=== PATIENT | male | born 1950 | race Caucasian/White ===

== ENCOUNTER 2017-05-22 13:20 | Day surgery (SDC) | payer MEDICARE, OTHER ==
[~2017-05-22] VITALS: Ht 188 cm; Wt 95.0 kg
[~2017-05-22 13:20] MED LIST: AMBIEN 10MG10 MG PO; ASPIRIN 81M81 MG/TA2 PO; ASPIRIN E.C. 8181 MG PO; BENICAR HCT 12.1 TA1 PO; BENICAR HCT 12.1 TAB PO; BRILINTA90 MG PO; COUMADIN 1MG1 MG/TAB PO; COUMADIN 3MG3 MG/TAB PO; COZAAR100 MG PO; HCTZ12.5TAB PO; K-DUR 10 MEQ T10 MEQ PO; LEXAPRO 10MG10 MG PO; LIPITOR 80MG80 MG PO; LOPRESSOR 225 MG/TAB PO; LOVENOX 4040 MG/0.4 SQ; MOTRIN 400400 MG/TAB PO; NORCO 325 MG-51 TAB PO; NORVASC 10MG10 MG PO; PLAVIX 75MG TAB75 MG PO; PRILOSEC 20MG20 MG PO; PROTONIX 40MG T40 MG PO; RAPAFLO8 MG PO; SUDAFED30 MG PO; TOPROL XL100 MG PO; VITAMIN D31000 IU PO; XANAX 0.5MG0.5 MG PO; ZOFRAN 4MG T4 MG/TAB PO
[2017-05-22] MEDS ORDERED: ELIQUIS 5MG PO (13:34)
[2017-05-22] MEDS ORDERED: LIVALO2 MG PO (13:35)
[2017-05-22] MEDS ORDERED: MULTAQ400 MG PO (13:37)
[2017-05-22 13:55] VITALS: BP 131/66; PULSE 89; TEMP 98.1
[2017-05-22 14:04] LABS: MEAN CELL VOLUME 86 fl (80.0-100.0); MEAN CORPUSCULAR HEMOGLOBIN 30 pg (27.0-31.0); MEAN CORPUSCULAR HGB CONC 35 g/dl (33.0-37.0); PLATELET COUNT 216 K/mm3 (130-400); RED BLOOD COUNT 5.01 M/mm3 (4.20-5.60)
== END 2017-05-22 15:15 | disposition home or self-care (01) ==
LOC: COL.CAR 13:20
PROVIDERS: Internal Medicine Interventional Cardiology
DX: I48.91 Unspecified atrial fibrillation (principal); R00.2 Palpitations; I48.0 Paroxysmal atrial fibrillation; Z86.718 Personal history of other venous thrombosis and embolism; I25.10 Atherosclerotic heart disease of native coronary artery without angina pectoris; I10 Essential (primary) hypertension; G47.33 Obstructive sleep apnea (adult) (pediatric); E78.5 Hyperlipidemia, unspecified; Z95.5 Presence of coronary angioplasty implant and graft
CPT/HCPCS: C1764

== ENCOUNTER 2018-09-15 10:35 | Day surgery (SDC) | payer MEDICARE, OTHER ==
[~2018-09-15] VITALS: Ht 185.4 cm; Wt 124.1 kg
[~2018-09-15 10:35] MED LIST changes: +ELIQUIS 5MG PO; +LIVALO4 MG PO; +MULTAQ400 MG PO
[2018-09-15 12:01] VITALS: BP 174/66; PULSE 56; TEMP 98.1
[2018-09-15] MEDS ORDERED: CARDIZEM120 MG PO (12:06)
[2018-09-15] MEDS ORDERED: TIAZAC240 MG PO (12:06)
[2018-09-15] MEDS ORDERED: MOBIC15 MG PO (12:08)
[2018-09-15] MEDS ORDERED: MULTI VITAMINS1 TAB PO (12:09)
[2018-09-15 14:03] VITALS: BP 130/62; PULSE 50; TEMP 98.1
[2018-09-15 14:18] VITALS: BP 125/59; PULSE 50
[2018-09-15 14:33] VITALS: BP 132/63; PULSE 50
[2018-09-15 14:48] VITALS: BP 134/60; PULSE 50
[2018-09-15 15:18] VITALS: BP 131/63; PULSE 50
== END 2018-09-15 15:20 | disposition home or self-care (01) ==
LOC: SDCO 10:35
DX: K40.90 Unilateral inguinal hernia, without obstruction or gangrene, not specified as recurrent (principal); I48.2 Chronic atrial fibrillation; Z79.01 Long term (current) use of anticoagulants; I10 Essential (primary) hypertension; Z85.46 Personal history of malignant neoplasm of prostate; Z79.82 Long term (current) use of aspirin; Z79.899 Other long term (current) drug therapy; G47.33 Obstructive sleep apnea (adult) (pediatric); K21.9 Gastro-esophageal reflux disease without esophagitis; G89.29 Other chronic pain; M54.9 Dorsalgia, unspecified; Z95.5 Presence of coronary angioplasty implant and graft
CPT/HCPCS: C1781; J2250; J2405; J2704; J3010; J7120

== ENCOUNTER 2019-09-02 10:08 | Day surgery (SDC) | payer MEDICARE, OTHER ==
[2019-09-02] VITALS (9 sets, daily range): BP systolic 104–123; BP diastolic 67–86; PULSE 65–88; TEMP 98.4
[~2019-09-02] VITALS: Ht 185.4 cm; Wt 120.0 kg
[~2019-09-02 10:08] MED LIST changes: +CARDIZEM120 MG PO; +MOBIC15 MG PO; +MULTI VITAMINS1 TAB PO
[2019-09-02 10:39] LABS: HEMATOCRIT 43.9 % (42.0-52.0); HEMOGLOBIN 15.2 g/dl (13.5-18.0); MEAN CELL VOLUME 89 fl (80.0-100.0); MEAN CORPUSCULAR HEMOGLOBIN 31 pg (27.0-31.0); MEAN CORPUSCULAR HGB CONC 35 g/dl (33.0-37.0); MEAN PLATELET VOLUME 9.7 fl (7.4-10.4); PLATELET COUNT 242 K/mm3 (130-400); RED BLOOD COUNT 4.92 M/mm3 (4.20-5.60); REDCELL DISTRIBUTION WIDTH-CV 12.9 % (11.5-14.5)
[2019-09-02] MEDS ORDERED: EDARB4012.5TAB PO (10:43)
[2019-09-02 10:47] LABS: CALCIUM 9.3 mg/dL (8.4-10.2); CREATININE, serum 1.03 (0.66-1.25); POTASSIUM 3.6 mmol/L (3.4-5.0)
[2019-09-02 11:00] LABS: PROTHROMBIN TIME 11.4 SECONDS (9.7-12.8)
[2019-09-02 11:03] LABS: PARTIAL THROMBOPLASTIN TIME 27.2 SECONDS (26.0-37.0)
--- NOTE | 2019-09-02 12:27 | NUR ---
SEE [facility]EREGLORIA FOR ALL MEDICATION ADMINISTRATION TIMES AND INTRA/POST SEDATION ASSESSMENTS
--- NOTE | 2019-09-02 13:15 | NUR ---
PT back from [employer], at bs, bedside report received from Britta PACHECO. Pt is awake and alert, TR band to rt wrist with 13 ml air instilled. cms intact to rt hand. no hematoma noted proximal or distal. no bleeding. splint in place. pt aware of poc.
--- NOTE | 2019-09-02 14:45 | NUR ---
Pt doing well post procedure, he has been able to eat dinner, and has been up to bathroom in the room, has gotten partially dressed. cms remains intact to rt upper extremity, site looks good without evidence of hematoma or bleeding, cms intact. pt reports feels very steady on feet.
--- NOTE | 2019-09-02 16:30 | NUR ---
TR band removed, hemostasis maintained, bandaid applied, splint reapplied. I have reviewed dc/fu instructions with patient and who deny any questions. They were given written dc instructions regarding moderate sedation and heart cath discharge instructions regarding site care and activity restrictions, aswell as reasons to be evaluated by md or in ER. IV was dc'd with cath intact, dressing was applied. to exit via wheelchair.
== END 2019-09-02 16:50 | disposition home or self-care (01) ==
LOC: COL.CAR 10:08
PROVIDERS: Internal Medicine Interventional Cardiology
DX: I25.10 Atherosclerotic heart disease of native coronary artery without angina pectoris (principal); I47.2 Ventricular tachycardia; I48.0 Paroxysmal atrial fibrillation; G47.33 Obstructive sleep apnea (adult) (pediatric); Z79.82 Long term (current) use of aspirin; Z79.01 Long term (current) use of anticoagulants; Z86.718 Personal history of other venous thrombosis and embolism; Z95.818 Presence of other cardiac implants and grafts; Z83.3 Family history of diabetes mellitus; Z82.3 Family history of stroke; Z82.49 Family history of ischemic heart disease and other diseases of the circulatory system
CPT/HCPCS: J1644; J2250; J3010; Q9967

== ENCOUNTER → 2021-09-11 | Outpatient (CLI) | payer MEDICARE, OTHER ==
[~2021-09-11] MED LIST changes: +EDARB4012.5TAB PO
== END ==
LOC: COL.VAS 08-26 08:00
DX: Z01.818 Encounter for other preprocedural examination (principal); Z86.718 Personal history of other venous thrombosis and embolism

== ENCOUNTER → 2021-11-25 | Outpatient (CLI) | payer MEDICARE, OTHER | LOC: MC.RAD 08:00 | DX: N63.20 Unspecified lump in the left breast, unspecified quadrant (principal) ==

== ENCOUNTER 2024-06-14 06:53 | Day surgery (SDC) | payer MEDICARE, OTHER ==
[2024-06-14] VITALS (9 sets, daily range): BP systolic 127–171; BP diastolic 66–88; PULSE 64–85; TEMP 96.8–98.2
[~2024-06-14] VITALS: Ht 188 cm; Wt 123.4 kg
[2024-06-14] MEDS ORDERED: LR 1,000 ML IV ONE (08:45)
[2024-06-14] MEDS ORDERED: NORVASC 5MG5 MG/TAB PO (09:25)
[2024-06-14] MEDS ORDERED: HCTZ 25MG TAB25 MG PO (09:26)
[2024-06-14] MEDS ORDERED: COZAAR 50MG50 MG/TAB PO (09:26)
[2024-06-14] MEDS ORDERED: TOPROL XL 50MG50 MG PO (09:27)
[2024-06-14] MEDS ORDERED: MELATONIN5 M1 SL (09:28)
[2024-06-14] MEDS ORDERED: Lidocaine PF 2% (20 MG/ML) 5 ML VIAL ONE (09:55)
[2024-06-14] MEDS ORDERED: Ondansetron 4 MG/2 ML VIAL ONE (09:55)
[2024-06-14] MEDS ORDERED: Glycopyrrolate 0.2 MG/ML 1 ML VIAL ONE (10:35)
[2024-06-14] MEDS ORDERED: ePHEDrine 50 MG/ML VIAL ONE (10:38)
[2024-06-14] MEDS ORDERED: Lidocaine 1% w EPI (1:100,000) 30 ML Multi-Dose VIAL IJ ONE (10:50)
[2024-06-14] MEDS ORDERED: Morphine 4 MG/ML VIAL IV PRN (13:15)
[2024-06-14] MEDS ORDERED: Ondansetron 4 MG/2 ML VIAL IV PRN ×2 (13:15→13:45)
[2024-06-14] MEDS ORDERED: Acetaminophen 325 MG TAB PO PRN (13:15)
[2024-06-14] MEDS ORDERED: hydrALAZINE 20 MG/ML 1 ML VIAL IV PRN (13:45)
[2024-06-14] MEDS ORDERED: HYDROmorphone 1 MG/1 ML SYRINGE [PACU/SDC ONLY] IV PRN (13:45)
[2024-06-14] MEDS ORDERED: fentaNYL 50 MCG/ML 1 ML SYRINGE/VIAL [PACU/SDC ONLY] IV PRN (13:45)
--- NOTE | 2024-06-14 17:00 | NUR ---
1400- PT RETURNS FROM PACU VIA CART TO [facility]. MONITORS ON AND ALARMS SET. CALL LIGHT WITHIN REACH. REPORT RECEIVED FROM JUNIOR GARCIA. PT ALERT AND ORIENTED. PT REQUESTS FOOD AND DRINK. PT DENIES ANY PAIN OR NAUSEA. 1415- PT TAKING FOOD AND DRINK WELL. PT DID STATE "I AM FEELING A LITTLE BIT OFF". PT HAS A HX OF A-FIB. IS CURRENTLY IN A-FIB AT THIS TIME. NOTIFIED JUNIOR MEREDITH AT THIS TIME. 1430- 5 LEAD EKG WAS PLACED ON PT. EKG SHOWS A-FIB. NOTHING ELSE CONCERNING. ANESTHESIA ALSO NOTIFIED AT THIS TIME. 1445- PT RESTING IN BED, VSS, EKG STILL SHOWING A-FIB. PT SAYS THAT HE IS STILL "FEELING WEIRD". KEEPING PT LONGER FOR OBSERVATION. 1500- WAITING ON TO COME BACK [place] [employer] [place]. 1530- PT SAYS THAT HE IS STARTING TO FEEL BETTER AND STATES "I FEEL LIKE MY HEAD IS CLEARER". PT STARTS GETTING DRESSED WITH AT BEDSIDE. CHANGE DRESSING ON BACK DUE TO BLOODY DRAINAGE. 1610- PT TRANSFERRED OUT OF THE HOSPITAL VIA WHEELCHAIR AND ASSIST TO PRIVATE VEHICLE DRIVEN BY .
== END 2024-06-14 16:10 | disposition home or self-care (01) ==
LOC: SDCO 06:53
DX: C76.41 Malignant neoplasm of right upper limb (principal); L82.1 Other seborrheic keratosis; L57.0 Actinic keratosis; L98.8 Other specified disorders of the skin and subcutaneous tissue; Z95.5 Presence of coronary angioplasty implant and graft; Z86.718 Personal history of other venous thrombosis and embolism; G47.33 Obstructive sleep apnea (adult) (pediatric); Z79.82 Long term (current) use of aspirin; Z79.01 Long term (current) use of anticoagulants
CPT/HCPCS: A9520-JZ; J0665; J0690; J1170; J2405; J2704; J3010; J7120